=== PATIENT | female | born 1985 | race Hispanic/Latino ===

== ENCOUNTER 2016-12-30 17:51 | Emergency (ER) | payer OTHER ==
[~2016-12-30] VITALS: Ht 149.9 cm; Wt 63.6 kg
[~2016-12-30 17:51] MED LIST: NOMED; PREN1TAB69 PO
[2016-12-30 17:55] VITALS: BP 155/92; PULSE 68; RESP 16; O2SAT 96
[2016-12-30 18:15] VITALS: BP 124/63
--- NOTE | 2016-12-30 18:47 | ED.REPORT ---
HPI-Back Pain Under 40 Date of Service Dec 30, 2016 ED Provider: Marcelino Angeles MD Pt is a 31 y/o female presenting to the ED via EMS c/o back pain with migration to the abdomen onset about 1 hour ago. This episode lasted about 20 minutes and occurred at rest. She describes her abdominal pain as cramping and band-like and occurring after spending too long in a sitting position. She has been experiencing similar pain intermittently for many months, usually of only mild severity. Her pain is sometimes exacerbated movement or standing up too quickly. She does report a significant amount of anxiety prior to and during these episodes. She denies nausea, vomiting, fever, chills, CP, SOB. Abdominal surgeries: . The pain is not postprandial in nature. Nursing Notes Stated Complaint: BACK/ABD PAIN Chief Complaint: Back Pain or Injury Nursing Notes Reviewed: Yes Allergies: Coded Allergies: No Known Allergies (Verified Allergy, Unknown, 05/08/14) Scheduled Vit/Fe Fumarate/Fa-Expunged Drug, Do (-Expunged Drug, Do Not Renew!) 1 Each Tablet 1 EACH PO DAILY Scheduled PRN Simethicone (Gas-X) 80 Mg Tablet 80 MG PO DAILY PRN PRN For Pain Miscellaneous Medications No Historical Medication (No Historical Medication) Ea General Time Seen by MD: 17:54 Chief Complaint Back pain Hx Obtained From: Patient, EMS Arrived By: Ambulance Sudden in Onset?: Yes Onset Occurred: 1 - 4 hours ago Symptom Duration: Intermittent Caused by: Spontaneous/no mechanism Location: : Perispinal lumbar Quality: Painful Radiation: : Abdomen Severity: Current: No pain currently Severity: Maximum: Moderate Similar Sx Previous: Yes Past Medical History Past Medical History Denies Past Surgical History Smoking History Unknown if Ever Smoker Social History Other Social History: Ambulatory Status Independent Review of Systems Constitutional: Denies: Chills, Fever Respiratory: Denies: Non-productive cough, Shortness of breath Cardiovascular: Denies: Chest pain, Dyspnea on exertion GI: Reports: Abdominal pain, Denies: Nausea, Vomiting Musculoskeletal: Reports: Back pain, Denies: Extremity pain Complete sys rev & neg: except as marked. Psychiatric: Reports: Anxiety, Denies: Change mental status Physical Exam Initial Vital Signs Vital Signs (First) Date Time Temp Pulse Resp B/P Pulse Ox O2 Delivery O2 Flow Rate FiO2 12/30/16 17:55 36.8 68 16 155/92 96 Room Air Initial VS: Reviewed, Vital signs normal Head / Eyes: Atraumatic, Normocephalic, PERRL ENT: Mucous membranes moist, Conjunctiva normal, No scleral icterus Neck: Supple, Full range of motion Respiratory: Breath sounds normal, Clear to auscultation, No respiratory distress Cardiovascular: Regular rate & rhythm, Heart sounds normal, Intact distal pulses Extremities: Vascular intact, Neuro intact, No swelling, No tenderness Skin: Warm, Dry, No cyanosis Psychiatric: Mood/affect normal, Behavior normal, Normal thought content Back: Full range of motion, Painless range of motion Diffuse tenderness about lumbar paraspinal regions bilaterally Neurologic: Oriented X3, Speech NL, No motor deficits, No sensory deficits Abdomen: Atraumatic, Soft, Non-tender, No guarding, No rebound, No distention, No palpable mass Tenderness/Guarding/Rebound: Negative: Lundy's sign positive, Tender epigastric Firm palpation in the RUQ with deep inspiration illicits no pain Re-Eval/Medical Decision Med Decision/Clinical Course Patient is a 31-year-old female in generally good health who presents with vague episodes of cramping musculoskeletal type pain that starts in her back and radiates around to her abdomen and is often associated with movement or prolonged sitting. Neurologic examination is completely normal. Abdominal examination is completely benign. Patient is comfortable and in no apparent distress. From palpation about the right upper quadrant elicits no pain suggestive of biliary etiology. She reports a high level of anxiety and she believes that anxiety may play a role in these events. At this time I see no evidence of acute neurologic process. No evidence of acute surgical intra- abdominal process. On further discussion with the patient she reports that these episodes of pain are sometimes relieved by passing gas. She was treated with simethicone here in the emergency department and provided with a prescription for this medication. Also counseled about ways to manage her stress and anxiety. Follow-up and return precautions were reviewed in detail and she was discharged in good condition. Re-Evaluation/Progress : Time of Eval: 18:58 Re-Evaluation/Progress Note: Pt rechecked. Informed pt of plan for treatment. Pt understands and agrees with plan for treatment. F/U instructions and RTER warnings given. All questions addressed. Counseled Regarding: Diagnosis, Need for follow-up, When/why to return to ED Discharge & Departure Impression: Primary Impression: Abdominal pain Abdominal location: generalized Qualified Code: R10.84 - Generalized abdominal pain Additional Impressions: Abdominal gas pain Anxiety Disposition: Home All VS Reviewed: Yes Condition: Stable Patient Instructions: Acute Abdominal Pain (ED) Additional Instructions: Thank you for seeking care at the emergency room. It is difficult for us to make definitive diagnoses in the ED but we believe that you are experiencing abdominal pain which may be caused by gas or muscle cramping. Our primary goal today in the ED was to evaluate you for any life-threatening conditions. Your evaluation was reassuring. You will be discharged with a prescription for Simethicone. Take this as directed. You should follow-up with your primary doctor in the next week. You should return to the ED immediately if you develop worsening or persistent abdominal pain, fevers, vomiting, shortness of breath, chest pain, lightheadedness, weakness or any other concerning signs or symptoms. Thank you for letting us partake in your care today. Referrals: NOPCP (PCP) Nessa Rascon MD (Family) Nghia Attestation Portions of this note were transcribed by Rupert Jama. I, Dr. Angeles personally performed the history, physical exam and medical decision-making; I reviewed and confirmed the accuracy of the information in the transcribed note. Signed by Nghia Gillespie, 12/30/16 - 0 copies to: Nessa Rascon MD, Beck O MD Dec 30, 2016 18:47 RUPERT JAMA Dec 30, 2016 18:54
[2016-12-30 19:37] VITALS: BP 115/67; PULSE 81; O2SAT 98
[2016-12-30 19:40] VITALS: BP 115/67; PULSE 81; O2SAT 98
[2016-12-30] MEDS ORDERED: SIME80TA53 PO (19:47)
[2017-02-11] MEDS ORDERED: ONDA4TAB9 PO (10:24)
[2017-02-11] MEDS ORDERED: SIME80TA53 PO (10:24)
[2017-02-11] MEDS ORDERED: HYDR-4003 PO (10:24)
== END 2016-12-30 19:42 | disposition home or self-care (01) ==
LOC: EDBD 17:51 → SED 17:51
DX: R10.84 Generalized abdominal pain (principal); R14.1 Gas pain; F41.9 Anxiety disorder, unspecified

== ENCOUNTER 2017-02-03 16:49 | Emergency (ER) | payer SELFPAY ==
[~2017-02-03] VITALS: Ht 144.8 cm; Wt 63.6 kg
[~2017-02-03 16:49] MED LIST changes: +SIME80TA53 PO
[2017-02-03 16:56] VITALS: BP 144/90; PULSE 89; RESP 20; O2SAT 100
[2017-02-03 17:19] VITALS: BP 129/78; PULSE 74; RESP 18; O2SAT 99
[2017-02-03] MEDS ORDERED: 0.9% Sodium Chloride 1,000 ML IV ONE (17:32)
--- NOTE | 2017-02-03 17:32 | ED.REPORT ---
HPI-Abd Pain F Under 40 Date of Service Feb 03, 2017 ED Provider: Marcelino Angeles MD Patient is a 31 year old female with a recent diagnosis of gall stones who presents to the ED complaining of right, upper abdominal pain onset 2 weeks ago. At first her pain was only after eating and she had to vomit to make the pain go away. Last night her pain became constant without eating. She believes that drinking lots of water improves her pain. Associated symptoms include diarrhea (x2 yesterday). She denies fever, dysuria, or any other symptoms. She tried to eat and drink at noon. She is scheduled for a cholecystectomy on . Her menstrual period started today. Nursing Notes Stated Complaint: VOMITING, ABDOMINAL PAIN Chief Complaint: Female Abdominal Pain Nursing Notes Reviewed: Yes Allergies: Coded Allergies: No Known Allergies (Verified Allergy, Unknown, 05/08/14) Scheduled Vit/Fe Fumarate/Fa-Expunged Drug, Do (-Expunged Drug, Do Not Renew!) 1 Each Tablet 1 EACH PO DAILY Scheduled PRN Hydrocodone-Acetaminophen 5-325 mg (Hydrocodone-Acetaminophen 5-325 mg) 1 Each Tablet 1 TABLET PO Q4H PRN PRN For Pain Ondansetron ODT (Zofran ODT) 4 Mg Tablet 4 MG PO Q4H PRN PRN For Nausea Simethicone (Gas-X) 80 Mg Tablet 80 MG PO DAILY PRN PRN For Pain Miscellaneous Medications No Historical Medication (No Historical Medication) Ea General Time Seen by MD: 17:26 Chief Complaint Abdominal pain Hx Obtained From: Patient, Junior Art Director Arrived By: Walk-in Recent Healthcare: Recent doctor visit Similar Sx Previous: No Past Medical History Past Medical History Gallstones Past Surgical History x2 Smoking History Unknown if Ever Smoker Social History Other Social History: Ambulatory Status Independent Review of Systems Constitutional: Denies: Chills, Fever GI: Reports: Abdominal pain, Diarrhea Female: Denies: Dysuria Complete sys rev & neg: except as marked. Physical Exam Initial Vital Signs Vital Signs (First) Date Time Temp Pulse Resp B/P Pulse Ox O2 Delivery O2 Flow Rate FiO2 02/03/17 16:56 37.2 89 20 144/90 100 Room Air Head / Eyes: Atraumatic, Normocephalic ENT: Mucous membranes moist Neck: Full range of motion Skin: Warm, Dry Neurologic: Alert, Oriented, Nonfocal Psychiatric: Mood/affect normal, Behavior normal, Normal thought content General/Constitutional: Awake, Alert, Well developed Distress / Hydration: Positive: Distress mild CLutching RUQ of abdomen. Respiratory / Chest: Breath sounds NL, Breath sounds = bilat, No respiratory distress Cardiovascular: Heart rate NL, Regular rhythm, Heart sounds NL, No gallop, No murmurs, No rubs Abdomen: No guarding Tenderness/Guarding/Rebound: Positive: Tender RUQ... (Severe) Pain in RUQ with deep inspiration or pressure. No rigidity Back: Inspection NL Lower Extremity / Pelvis / MS: Inspection NL No calf swelling or tenderness Interpretation & Diagnostics zofran, IV fluids Lab Results Interpretation Result Diagram: 02/03/17 1730 02/03/17 1730 Test 02/03/17 17:30 White Blood Count 7.4th/mm3 (3.8-10.1) Red Blood Count 4.53mil/mm3 (3.90-5.20) Hemoglobin 13.3g/dL (12.0-15.6) Hematocrit 39.2% (35.0-46.0) Mean Corpuscular Volume 86.5fL (81-100) Mean Corpuscular Hemoglobin 29.4pg (27.0-35.0) Mean Corpuscular Hemoglobin Concent 33.9% (32.0-37.0) Red Cell Distribution Width 12.3% (12.3-15.4) Platelet Count 254bil/L (150-400) Neutrophils (%) (Auto) 59.4% (40-74) Lymphocytes (%) (Auto) 30.1% (14-46) Monocytes (%) (Auto) 6.2% (4-12) Eosinophils (%) (Auto) 3.9% (0-5) Basophils (%) (Auto) 0.1% (0-3) Urine Color Red (YELLOW) Urine Appearance Clear (CLEAR,HAZY) Urine pH 7.5 (5.0-8.0) Urine Specific [place] 1.010 (1.003-1.035) Urine Protein 100mg/dL (NEG,TRACE) Urine Glucose (UA) Negativemg/dL (NEGATIVE) Urine Ketones Negativemg/dL (NEGATIVE) Urine Occult Blood Large (NEGATIVE) Urine Nitrite Negative (NEGATIVE) Urine Bilirubin Negative (NEGATIVE) Urine Urobilinogen Normalmg/dL (NORMAL) Urine Leukocyte Esterase Small (NEGATIVE) Urine RBC Packed/hpf (0-2) Urine WBC 6-10/hpf (0-5) Urine Epithelial Cells Moderate/hpf (NONE-MOD) Urine Crystals None seen (NONE SEEN) Urine Bacteria None/hpf (NONE-FEW) Urine Hyaline Casts None/lpf (NONE) Urine Granular Casts None seen (NONE SEEN) Urine Waxy Casts None seen (NONE SEEN) Urine Red Blood Cell Casts None seen (NONE SEEN) Urine White Blood Cell Casts None seen (NONE SEEN) Urine Mucus None seen (None Seen) Urine Trichomonas None seen (NONE SEEN) Urine Yeast None (NONE SEEN) Urine Culture Reflexed Indicated Sodium Level 139mEq/L (134-144) Potassium Level 3.7mEq/L (3.5-5.2) Chloride Level 103mEq/L (97-108) Carbon Dioxide Level 22mmol/L (18-29) Blood Urea Nitrogen 9mg/dL (6-20) Creatinine 0.37mg/dL (0.57-1.00) Estimat Glomerular Filtration Rate 288mL/min (>59) Glucose Level 108mg/dL (60-99) Calcium Level 9.1mg/dL (8.5-10.1) Magnesium Level 2.1mg/dL (1.6-2.6) Total Bilirubin 0.3mg/dL (0.0-1.2) Aspartate Amino Transf (AST/SGOT) 29U/L (0-50) Alanine Aminotransferase (ALT/SGPT) 38U/L (0-32) Alkaline Phosphatase 69U/L (25-150) Total Protein 7.8g/dL (6.4-8.4) Albumin 4.4g/dL (3.4-5.0) Lipase 18U/L (13-60) Human Chorionic Gonadotropin, Qual 0.500 (Negative) Hold Guzman Top Tube Received (Received) Lab Results Interpretation: CBC unremarkable CMP unremarkable Preg neg Mild elevated ALT bilirubin and LFT within nL limits no bacteria 6-10 wbc blood present (menstrating) moderate epithelial cells, unconvincing of UTI US Abdominal Aorta IMPRESSION: Gallstones, and positive sonographic Lundy sign (as previously seen on prior study dated 01/24/17). Of note, no pericholecystic fluid or definite gallbladder wall thickening.Please correlate clinically and with LFTs. Dictated by: Colt Moscoso M.D. on 02/03/2017 at 19:36 Approved by: Colt Moscoso M.D. on 02/03/2017 at 19:40 Exam Performed by: [facility] Exam Type: Diagnostic Re-Eval/Medical Decision Med Decision/Clinical Course Patient is a 31 year old female with a recent diagnosis of gall stones who presents to the ED complaining of right, upper abdominal pain onset 2 weeks ago. At first her pain was only after eating and she had to vomit to make the pain go away. Last night her pain became constant without eating. She believes that drinking lots of water improves her pain. Associated symptoms include diarrhea (x2 yesterday). She denies fever, dysuria, or any other symptoms. She tried to eat and drink at noon. She is scheduled for a cholecystectomy on . Her menstrual period started today. Here in the emergency department the patient appears quite uncomfortable but was otherwise afebrile and hemodynamically stable. Abdominal examination reveals some tenderness in the right upper quadrant without any guarding, rigidity or rebound. I reviewed her previous medical quadrant ultrasound which demonstrated extensive gallstones without any evidence of acute cholecystitis or biliary ductal dilatation. Laboratory studies were obtained as below: CBC unremarkable CMP unremarkable Preg neg Mild elevated ALT bilirubin and LFT within nL limits no bacteria 6-10 wbc blood present (menstrating) moderate epithelial cells, unconvincing of UTI Due to concern for evolving acute cholecystitis or common bile duct stone I opted to obtain a repeat right upper quadrant ultrasound which again demonstrated no evidence of acute cholecystitis or rotation of the common bile duct however there was fairly extensive presence of gallstones. After being treated with IV fluids, Zofran for nausea and hydromorphone for pain the patient reported significant improvement in her symptoms. Serial abdominal examinations were reassuring. I splinted the patient that at this time there is no indication for emergent surgery however she was quite anxious about the pain that she been experiencing and requested to be admitted to have her gallbladder removed. I discussed this with the on-call surgeon Dr. Lockett who did not feel that this is necessary and advised that the patient follow up on an outpatient basis for elective surgery previously directed. He will call in order to see if her appointment for surgery can be expedited. The patient is in agreement with this plan. She is now tolerating PO and relatively comfortable. I will prescribe additional pain and nausea medication for her. Prior to discharge follow-up and return precautions were reviewed in detail with the patient who verbalized understanding and agreement with the plan. The patient was discharged in stable condition. Re-Evaluation/Progress #1: Time of Eval: 19:34 Re-Evaluation/Progress Note: Rechecked patient. Pain unimproved. Discussed plan for possible admission Re-Evaluation/Progress #2: Time of Eval: 19:51 Re-Evaluation/Progress Note: Discussed plan for discharge. Patient understands and agrees with plan. All questions addressed at this time. Consultation #1: Referral / Consult Name: Zach Lockett MD Call Returned at: 19:38 Note: Discussed patient's case. Will not operate on or admit patient. Consultation #2: Referral / Consult Name: Zach Lockett MD Call Returned at: 19:48 Note: Will try to get patient's surgery moved up. Counseled Regarding: Diagnosis, Lab results, Need for follow-up, When/why to return to ED Discharge & Departure Primary Impression: Biliary colic Additional Impressions: Right upper quadrant abdominal pain Gallstones Postprandial abdominal pain in right upper quadrant Disposition: Home Discharge Condition All VS Reviewed: Yes Condition: Stable Additional Instructions: Thank you for seeking care at the emergency room. It is difficult for us to make definitive diagnoses in the ED but we believe that you are experiencing pain due to your many gallstones. Our primary goal today in the ED was to evaluate you for any life-threatening conditions. Your evaluation was reassuring. You will be discharged with a prescription for pain medication, please take as directed. Please follow-up with your surgeon in the next couple of weeks as previously directed to have her gallbladder removed. You should return to the ED immediately if you develop worsening pain, fevers, vomiting, cough, shortness of breath, chest pain, lightheadedness, weakness or any other concerning signs or symptoms. Thank you for letting us partake in your care today. Narcotic Pain Medicine You have been prescribed a narcotic for pain relief. These drugs are usually combined with acetaminophen (Tylenol#3, Percocet, Darvocet, Anexsia, Vicodin) or aspirin (Empirin#3, Percodan, Synalogs-DC) for increased effect. Narcotics act on the central nervous system to reduce pain; they also impair mental alertness and physical abilities. We advise you not to drink alcohol, drive a car, or operate dangerous equipment when you are taking these drugs. You can lessen stomach irritation from your medicine by taking it with meals or a full glass of water. Common side effects of narcotics are: Nausea and vomiting , heartburn, constipation, dizziness, sleepiness, and mood changes. If you have bothersome side effects or symptoms of an allergic reaction (itching, hives, rash), stop taking your medicine and call your doctor or the emergency room right away. Please keep your narcotic medicine well out of the reach of children. Referrals: Nessa Rascon MD (PCP/Family) Scribe Attestation Portions of this note were transcribed by Meghan Nam. I, Dr. Angeles personally performed the history, physical exam and medical decision-making; I reviewed and confirmed the accuracy of the information in the transcribed note. Signed by: Meghan Nam 02/03/171956 copies to: Nessa Rascon MD, Beck O MD Feb 03, 2017 17:32 MEGHAN NAM Feb 03, 2017 18:26
[2017-02-03] MEDS ORDERED: Ondansetron 2 mg/mL 2 mL Inj IVPUSH ONE (17:35)
[2017-02-03 17:42] LABS: BASOPHILS % (AUTO) 0.1 % (0-3); EOSINOPHILS % (AUTO) 3.9 % (0-5); MONOCYTES % (AUTO) 6.2 % (4-12); Mean Corpuscular Hemoglobin 29.4 pg (27.0-35.0); Mean Corpuscular Volume 86.5 fL (81-100); NEUTROPHILS % (AUTO) 59.4 % (40-74); Platelet Count 254 bil/L (150-400)
[2017-02-03 18:20] LABS: Magnesium 2.1 mg/dL (1.6-2.6)
[2017-02-03] MEDS ORDERED: HYDROmorphone 0.5 mg/0.5 mL iSecure Syringe IVPUSH PRN (18:30)
[2017-02-03 18:39] LABS: APPEARANCE,URINE CLEAR (CLEAR,HAZY); COLOR,URINE RED (YELLOW); OCCULT BLOOD,URINE LARGE (NEGATIVE); PH,URINE 7.5 (5.0-8.0); UROBILINOGEN,URINE NORMAL (NORMAL)
[2017-02-03] MEDS ORDERED: HYDR-4003 PO (19:34)
--- NOTE | 2017-02-03 19:42 | DRSVH ---
PROCEDURE: US ABDOMEN, LIMITED ([id number]) INDICATIONS: ruq pain, cholecystitis? TECHNIQUE: Real-time focused scanning was performed of the abdomen, with image documentation. COMPARISON: [facility], US, US ABDOMEN, 01/24/2017, 8:00. FINDINGS: Liver is coarsely echogenic without focal lesion. There is focal fatty sparing. Gallstones are present and there is no definite gallbladder wall thickening or pericholecystic fluid however a p ositive sonographic Lundy sign. No definite intra-or extrahepatic biliary ductal dilatation IMPRESSION: Gallstones, and positive sonographic Lundy sign (as previously seen on prior study dated 01/24/17). Of note, no pericholecystic fluid or definite gallbladder wall thickening.Please correlate clinically a nd with LFTs. Dictated by: Colt Moscoso M.D. on 02/03/2017 at 19:36 Approved by: Colt Moscoso M.D. on 02/03/2017 at 19:40
[2017-02-03 19:44] VITALS: BP 124/82; PULSE 72; RESP 15; O2SAT 99
[2017-02-03] MEDS ORDERED: ONDA4TAB9 PO (19:50)
[2017-02-11] MEDS ORDERED: ONDA4TAB9 PO (10:24)
[2017-02-11] MEDS ORDERED: HYDR-4003 PO (10:24)
[2017-02-11] MEDS ORDERED: SIME80TA53 PO (10:24)
== END 2017-02-03 20:05 | disposition home or self-care (01) ==
LOC: SED 16:49
DX: K80.70 Calculus of gallbladder and bile duct without cholecystitis without obstruction (principal); R19.7 Diarrhea, unspecified
CPT/HCPCS: 36415; 76705; 80053; 81000; 81025; 83690; 83735; 84703; 85025; 87086; 96361; 96374; 96375; 99285; J1170; J2405; J7030

== ENCOUNTER 2017-02-15 09:42 | Day surgery (SDC) | payer SELFPAY ==
[2017-02-15] VITALS (9 sets, daily range): BP systolic 93–131; BP diastolic 46–83; PULSE 64–94; RESP 13–17; O2SAT 97–100
[~2017-02-15] VITALS: Ht 144.8 cm; Wt 62.8 kg
[~2017-02-15 09:42] MED LIST changes: +CeFAZolin Inj 2 GM in IV Premix 1 EACH IV ONE; +HYDR-4003 PO; -NOMED; +ONDA4TAB9 PO; -PREN1TAB69 PO
[2017-02-15] MEDS ORDERED: Rocuronium 10 mg/mL 5 mL Inj ONE (09:43)
[2017-02-15] MEDS ORDERED: MetoCLOpramide 5 mg/mL 2 mL Inj ONE (09:43)
[2017-02-15] MEDS ORDERED: Propofol 10,000 mCg/mL 20 mL Inj ONE (09:43)
[2017-02-15] MEDS ORDERED: Ondansetron 2 mg/mL 2 mL Inj ONE (09:43)
[2017-02-15] MEDS ORDERED: Glycopyrrolate 0.2 MG/ML 1mL Inj ONE (09:43)
[2017-02-15] MEDS ORDERED: HYDROmorphone 2 mg/mL Inj ONE (09:43)
[2017-02-15] MEDS ORDERED: Dexamethasone 4 mg/mL Inj ONE (09:43)
[2017-02-15] MEDS ORDERED: Neostigmine 1 mg/mL 10 mL Inj ONE (09:43)
[2017-02-15] MEDS ORDERED: CeFAZolin Inj 2 gm / 50mL D5W IV ONE (09:46)
[2017-02-15] MEDS: Lactated Ringer's 1,000 ML IV SCH ×2 (11:28→13:37)
[2017-02-15] MEDS ORDERED: Lactated Ringer's 500 ML IV PRN (12:58)
[2017-02-15] MEDS ORDERED: Lactated Ringer's 1,000 ML IV SCH (12:58)
--- NOTE | 2017-02-15 12:58 | PCM.HPANE ---
Patient Data Surgeon Admitting Provider: Attending Provider:Alejandro Schneider MD Primary Care Physician:Mariah Morales MD Other Provider:[facility] Reason for Visit Gall Stones Ht/WT & BMI Height (Feet): 4 Height (Inches): 9.00 Weight (Kilograms): 62.8 Body Mass Index 29.00 Allergies Coded Allergies: No Known Allergies (Verified Allergy, Unknown, 05/08/14) Past Anesthesia History Anesthesia History: Denies:: Anesthesia Reactions Diabetes History Hx Diabetes?: No Current Bedside Blood Glucose: 85 Medications Hypertension Medication: No Home Meds Incl Beta [place]: No Reported Medications Simethicone (Gas-X)80 Mg [id number] Mg PO DAILY PRN For Pain 02/11/17 Ondansetron ODT (Zofran ODT)4 Mg Tablet4 Mg PO Q4H PRN For Nausea 02/11/17 Hydrocodone-Acetaminophen 5-325 mg 1 Each Tablet1 Tablet PO Q4H PRN For Pain Ref 0 02/11/17 Discontinued Reported Medications No Historical Medication Ea 10/12/12 Vit/Fe Fumarate/Fa-Expunged Drug, Do (-Expunged Drug, Do Not Renew!)1 Each Tablet1 Each PO DAILY 10/11/10 Discontinued Scripts Ondansetron ODT (Zofran ODT)4 Mg Tablet4 Mg PO Q4H PRN For Nausea #20 TABLET Prov:Marcelino Angeles MD 02/03/17 Hydrocodone-Acetaminophen 5-325 mg 1 Each Tablet1 Tablet PO Q4H PRN For Pain # 30 TABLET Prov:Marcelino Angeles MD 02/03/17 Simethicone (Gas-X)80 Mg [id number] Mg PO DAILY PRN For Pain #30 TABLET Prov:Marcelino Angeles MD 12/30/16 History History of ENT Problems?: No HEENT History: Denies:: Abnormal Airway Cataracts Difficult Intubation Dysphagia Glaucoma Hearing Problem Sinus Problem TMJ Denture Type: None Teeth Condition: Within Normal Limits Hx of Heart Problems?: No Cardiovascular History: Denies:: Congestive Heart Failure Hypertension Hx of Respiratory Problem?: No Respiratory History: Denies:: Asthma COPD Emphysema Oxygen Administration Tuberculosis Use of C-PAP Machine Hx Neurologic Problems?: Yes Neurological History: Positive for:: Headaches (migraine hx) Hx of GI Problems?: Yes Hx of Problems?: No Female Hx: Denies:: Currently Hx Musculoskeletal Problems?: No Musculoskeletal History: Denies:: Fibromyalgia Joint Replacement Hx of Psycho/Social Problems?: No Hx Surgeries?: Yes (back surgery, x2) Hx Any Other Health Problems?: Yes Other History: Denies:: Cancer Thyroid Disease Hx Diabetes: NoBedside Blood Glucose: 85 Hx Alcohol Use: NoHx Substance Use: No Smoking Status: Never Smoker Have You Smoked inLast 12 mo: No Stop/Bang Treated for Sleep Apnea?: No Do You Have a CPAP Machine?: No S-Snoring: Do You Snore Loudly: No T-Tired: feel tired, fatigued: No O-Obsered: Observed not breath: No P-Blood Pressure: treated: No B- Body Mass Index > 35 kg/m2: No A- Age over 50: No N- Neck Large Circumference: No G- Gender Male: No SAIRA Total Score: 0 SAIRA Risk Assessment: Low Risk, <3 Yes Risk Assessment Category Category 1A: Patient has history of documented sleep apnea, and HAS NOT received any narcotic, sedative or anesthesia administration during this stay. Category 1B: Patient has history of documented sleep apnea, and HAS received any narcotic , sedative or anesthesia administration during this stay Category 2: Patient has SUSPECTED Obstructive Sleep Apnea, and HAS received any narcotic , sedative or anesthesia administration during this stay. Category 3: Patient has SUSPECTED Obstructive Sleep Apnea and HAS NOT received narcotic, sedative or anesthesia administration during this stay. Category 4: Outpatient in Procedural Areas with known sleep apnea or who screen positive for High Risk via the STOP/BANG questionnaire. Exam Exam Vital Signs Vital Signs Date Time Temp Pulse Resp B/P Pulse Ox O2 Delivery O2 Flow Rate FiO2 02/15/17 10:21 36.5 64 16 131/83 100 Room Air General Appearance: Oriented X3 HEENT/AIRWAY: MP 2 Lungs: Normal Air Movement Heart: Regular Rate/Rhythm Meds/Labs/Diagnostics Admission Meds Current Medications Lactated Ringer's (Lr) 1,000 ml @ 120 mls/hr Q8H20M IV Last administered on t 11:28; Start 02/15/17 at 05:00; Stop 02/15/17 at 13:19 Scopolamine (Transderm-Scop Patch) 1.5 mg STK-MED ONCE TOPICAL Last administered on 02/15/17 10:00; Start 02/15/17 at 09:46; Stop 02/15/17 at 09:49 ; Status DC Acetaminophen (Tylenol) 650 mg STK-MED ONCE PO Last administered on 02/15/17 11:29; Start 02/15/17 at 11:22; Stop 02/15/17 at 11:24; Status DC Gabapentin (Neurontin) 600 mg STK-MED ONCE .ROUTE Last administered on 11:29; Start 02/15/17 at 11:23; Stop 02/15/17 at 11:25; Status DC Celecoxib (CeleBREX) 200 mg STK-MED ONCE .ROUTE Last administered on 02/15/17 11:29; Start 02/15/17 at 11:23; Stop 02/15/17 at 11:25; Status DC Bedside Blood Glucose: 85 Plan Impression Patient chart reviewed, patient interviewed and anesthestic plan with risks, benefits, and alternatives discussed, and informed consent obtained. ASA Physical Status: ASA2 Mod Systemic Disease Anesthetic Plan: GA Bene/Risks/Altern/Consents: Yes HP Complete Prior to Induction: Yes Denis Eugene MD Feb 15, 2017 12:58
[2017-02-15] MEDS ORDERED: Lactated Ringer's 1,000 ML IV ONE (12:59)
[2017-02-15] MEDS ORDERED: Ondansetron 2 mg/mL 2 mL Inj IVPUSH PRN (13:00)
[2017-02-15] MEDS ORDERED: HYDROmorphone 1 mg/mL Inj IVPUSH PRN (13:00)
[2017-02-15] MEDS ORDERED: fentaNYL-PF 50 mCg/mL 2 mL Inj IVPUSH PRN (13:00)
[2017-02-15] MEDS ORDERED: Phenylephrine 10,000 mCg/mL Inj IVPUSH PRN (13:00)
[2017-02-15] MEDS ORDERED: MetoCLOpramide 5 mg/mL 2 mL Inj IVPUSH PRN (13:00)
[2017-02-15] MEDS ORDERED: Dexamethasone 4 mg/mL Inj IVPUSH PRN (13:00)
[2017-02-15] MEDS ORDERED: EPHEDrine Sulfate 50 mg/mL Inj IVPUSH PRN (13:00)
[2017-02-15] MEDS ORDERED: Bupivacaine-MPF 0.5% 30 mL Inj INFILTRATE ONE (13:37)
[2017-02-15] MEDS ORDERED: HYDROcodone-APAP 5-325 mg Tablet PO PRN (14:40)
--- NOTE | 2017-02-15 15:44 | PCM.ANEP1 ---
Post Anesthesia Phase 1 PACU Phase 1 Assessment Vital Signs Vital Signs Date Time Temp Pulse Resp B/P Pulse Ox O2 Delivery O2 Flow Rate FiO2 02/15/17 15:30 85 15 113/57 98 Room Air 02/15/17 15:20 87 13 108/61 97 Room Air 02/15/17 15:05 84 17 93/53 100 Simple Mask 10 02/15/17 15:00 88 13 101/47 100 Simple Mask 10 02/15/17 14:55 73 14 99/51 100 Simple Mask 10 02/15/17 14:50 36.6 67 15 96/46 100 Simple Mask 10 02/15/17 10:21 36.5 64 16 131/83 100 Room Air Anesthetic Administered: GA Level of Alertness: Awake, talking Pain: No Nausea or Vomiting: No Oxygen Delivery: Room Air Lungs: Normal Air Movement Denis Eugene MD Feb 15, 2017 15:44
--- NOTE | 2017-02-15 22:23 | OP ---
[address] [address] OPERATIVE REPORT PATIENT: KRISTINA LY : 1985 MR#: [id number] ADMIT: 02/15/2017 JOB ID: [id number] DATE OF SURGERY: 02/15/2017 PREOPERATIVE DIAGNOSIS(ES): 1. Chronic calculous cholecystitis. 2. Incarcerated umbilical hernia. POSTOPERATIVE DIAGNOSIS(ES): 1. Chronic calculous cholecystitis. 2. Incarcerated umbilical hernia. OPERATION PERFORMED: 1. Laparoscopic cholecystectomy with attempted cholangiograms. 2. Repair of incarcerated umbilical hernia. SURGEON: Alejandro Schneider MD. WASHHOUSE HAND: Zacarias Morales PA-C. INDICATIONS: A 31-year-old female who has right upper quadrant pain. She has documented gallstones. She has been to the emergency room several times and, after discussing options with the patient, it was elected to proceed with a laparoscopic cholecystectomy and cholangiograms. FINDINGS: She had chronic calculous cholecystitis. Attempts at cholangiograms were unsuccessful as the catheter could not pass beyond the cystic duct valve. The common bile duct and common hepatic duct were clearly visualized and preserved. The entire triangle of Calot was dissected. Photographs showing the cystic duct, common bile duct, and common hepatic duct were taken. DESCRIPTION OF PROCEDURE: At the beginning and end of the operation, the SCOAP checklist was completed. A general endotracheal anesthetic was induced. She had on pneumatic hose. Using ChloraPrep, she was prepped and draped in the usual fashion. All trocar sites were infiltrated with 0.5% plain bupivacaine. An infraumbilical incision was made and dissection was carried down into her incarcerated umbilical hernia which was then reduced. The fascial margins were defined and the abdominal cavity entered. A trocar was placed and the abdomen was insufflated with CO2. She was placed in the reverse Trendelenburg position, rotated to the left, and accessory 5 mm ports were placed in the upper midline and two in the right upper quadrant under direct visualization. The gallbladder fundus was identified and elevated. Adhesions were taken down demonstrating the infundibulum which was retracted inferiorly and laterally. With careful dissection, the origin of the cystic duct was identified, but also I was able to identify the common bile duct and the common hepatic duct and photographs were taken demonstrating them. A small incision was made in the cystic duct, but attempts to pass a cholangiocatheter were unsuccessful because immediately upon entering the duct with the catheter, it was held up by a cystic duct valve. Benz bile came back out of the cystic duct. Two clips were then placed just beyond where I incised the cystic duct. Another photograph was taken demonstrating the preservation of the common bile duct and common hepatic duct. I should state that prior to making the incision of the cystic duct, the triangle of Calot was completely dissected, the plate released. There was a very small cystic artery and it was controlled with one clip proximally, and then distally up on the gallbladder was divided with cautery. The gallbladder was dissected away from the liver using cautery and placed into a specimen bag. The gallbladder bed was inspected. The cystic duct was inspected. The clips were secure. There was no evidence of bleeding or bile leak. The subhepatic and right subphrenic spaces were irrigated with saline and aspirated. The gallbladder was removed through the umbilical incision within its specimen bag. The umbilical hernia was then further exposed and the fascial margins were closed with running 0-Vicryl. Trocars were removed without evidence of bleeding. All skin incisions were closed with subcuticular 4-0 Vicryl. Steri-Strips and Band-Aids were applied. The estimated blood loss was less than 10 cc. There were no apparent complications. The final sponge, needle, and instrument counts were announced as correct and the patient was returned to recovery room in stable condition. Critical assistance was provided by MAYRA Rose.
--- NOTE | 2017-02-17 13:22 | PATH ---
SURGICAL PATHOLOGY Attending Physician:Susan Arteaga CASE STATUS: Signed Out PATIENT NAME: KRISTINA LY PID: [id number] : 1985 DATE COLLECTED:02/15/2017 00:00 SPECIMEN: Gallbladder CLINICAL HISTORY: GALLSTONES, CHOLECYSTITIS 1). GALLBLADDER FINAL DIAGNOSIS: 1.GALLBLADDER: CHOLELITHIASIS AND MILD CHRONIC CHOLECYSTITIS. NO EVIDENCE OF MALIGNANCY. ICD10 CODE K80.6 GROSS DESCRIPTION: The specimen is received in one formalin filled container labeled with the patient's name, sublabeled "gallbladder" and consists of a slightly opened 8.0 x 3.0 x 2.5 CM gallbladder. The serosa is smooth. The wall is 0.2-0.3 CM in thickness. The mucosa is a green ibrahim in color. The lumen contains a green ibrahim thick mucoid material and 15-20 green ibrahim fragmented pieces of calculi which range in size from 0.5-1.5 CM in greatest dimension. 5 architectural representative sections are submitted in cassette. 02/16/2017 [facility] MICRO DESCRIPTION: See diagnosis. ICD-9 CODES: CPT CODES: 1: 65301 Electronically Signed Out Jordana Gan MD [facility] [address], [place] [address] Technical component performed at [facility], [facility] [address], [place], [address]
== END 2017-02-15 23:59 | disposition home or self-care (01) ==
LOC: SAS 09:42
PROVIDERS: ATTEND Surgery
DX: K80.10 Calculus of gallbladder with chronic cholecystitis without obstruction (principal); K42.0 Umbilical hernia with obstruction, without gangrene; R10.13 Epigastric pain
CPT/HCPCS: 47562; 49587; J0690; J3010; J7120

== ENCOUNTER 2017-02-15 21:22 | Emergency (ER) | payer SELFPAY ==
[~2017-02-15 21:22] MED LIST changes: -CeFAZolin Inj 2 GM in IV Premix 1 EACH IV ONE; +NOMED; +PREN1TAB69 PO
[2017-02-15 21:28] VITALS: BP 115/71; PULSE 95; RESP 16; O2SAT 97
--- NOTE | 2017-02-15 22:22 | ED.REPORT ---
HPI-General Illness Date of Service Feb 15, 2017 ED Provider: Jacob Diaz MD Patient is a 31 y/o female who had a cholecystectomy today presents to the ED complaining of bleeding from her incision. She found blood spotting on her shirt following motion and is worried that she may have some excessive bleeding. She states that the pain associated with her surgery has radiated into her back and she states that she has not yet picked up her prescribed pain medication. Nursing Notes Stated Complaint: BLEEDING AFTER SURGERY Chief Complaint: General Complaint Nursing Notes Reviewed: Yes Allergies: Coded Allergies: No Known Allergies (Verified Allergy, Unknown, 05/08/14) Scheduled PRN Hydrocodone-Acetaminophen 5-325 mg (Hydrocodone-Acetaminophen 5-325 mg) 1 Each Tablet 1 TABLET PO Q4H PRN PRN For Pain Ondansetron ODT (Zofran ODT) 4 Mg Tablet 4 MG PO Q4H PRN PRN For Nausea Simethicone (Gas-X) 80 Mg Tablet 80 MG PO DAILY PRN PRN For Pain General Time Seen by MD: 22:20 Chief Complaint Abdominal pain (Associated with bleeding from surgical incision) Hx Obtained From: Patient Arrived By: Walk-in Sudden in Onset?: No Onset Occurred: Just prior to arrival Symptom Duration: Since onset Recent Healthcare: Recent doctor visit, Recent hospitalization Similar Sx Previous: No Past Medical History Past Medical History Gallstones Past Surgical History Back x2 Reports: Cholecystectomy Smoking History Unknown if Ever Smoker Social History Other Social History: Ambulatory Status Independent Review of Systems Full Review of Systems Respiratory: Denies: Non-productive cough Cardiovascular: Denies: Chest pain GI: Reports: Abdominal pain, Denies: Nausea, Vomiting Musculoskeletal: Reports: Back pain Hematologic: Reports Bleeding (From abdominal surgical incision) Complete sys rev & neg: except as marked. Physical Exam Vital Signs Vital Signs Date Time Temp Pulse Resp B/P Pulse Ox O2 Delivery O2 Flow Rate FiO2 02/16/17 00:58 36.7 84 16 122/74 97 Room Air 02/15/17 21:28 37.0 95 16 115/71 97 Room Air Initial VS: Reviewed General/Constitutional: Well-developed, Well-nourished Head / Eyes: Atraumatic, Normocephalic Cardiovascular: Regular rate & rhythm, Heart sounds normal Extremities: Vascular intact, Neuro intact Skin: Warm, Dry, No cyanosis Neurologic: Alert, Oriented, Nonfocal Abdomen: Soft, BS normoactive laparoscopy ports intact with small amount of bleeding at umbilicus. Abdomen is mildly tender consistent with recent surgery Re-Eval/Medical Decision Source of Hx: Old records Time of Eval: 23:20 Patient Status: Condition improved Re-Evaluation/Progress Note: Patient recheck and physical of the abdomen performed. Plan for discharge is discussed. The patient understands and agrees with the plan. All questions have been answered at this time. Counseled Regarding: Diagnosis, Need for follow-up, When/why to return to ED Discharge & Departure Primary Impression: Abdominal pain Abdominal location: right upper quadrant Qualified Code: R10.11 - Right upper quadrant pain Disposition: Home Discharge Condition All VS Reviewed: Yes Condition: Improved Additional Instructions: ED evaluation included interview and exam, records were reviewed. The small amount of bleeding noted is OK. May use hydrocodone/apap as needed for pain. Follow up with Dr Mari Schneider as scheduled, sooner if you have questions or concerns. Return to ED for fevers, shaking chills or severe pain. Referrals: Alejandro Schneider MD Attestation Portions of this note were transcribed by Javon Rushing and Haris Betancourt. I, Dr. Diaz personally performed the history, physical exam and medical decision- making; I reviewed and confirmed the accuracy of the information in the transcribed note. Signed by: Nghia Espinoza, 02/16/ 17at 0048. copies to: Alejandro Schneider MD, Donald L MD Feb 15, 2017 22:22 Javon Rushing Feb 15, 2017 22:34 HARIS BETANCOURT Feb 16, 2017 00:48
[2017-02-15] MEDS ORDERED: HYDROcodone-APAP 5-325 mg Tablet PO ONE (22:50)
[2017-02-15] MEDS ORDERED: _HYDROcodone/APAP 5-325 mg Tablet PO PRN (22:50)
[2017-02-16 00:58] VITALS: BP 122/74; PULSE 84; RESP 16; O2SAT 97
== END 2017-02-15 23:10 | disposition home or self-care (01) ==
LOC: SED 21:22
DX: R10.11 Right upper quadrant pain (principal); K91.840 Postprocedural hemorrhage of a digestive system organ or structure following a digestive system procedure